=== PATIENT | female | born 1990 | race Caucasian/White ===

== ENCOUNTER 2024-03-24 08:13 | Outpatient (CLI) | payer BC ==
[2024-03-24 11:24] LABS: BHCG - Serum Negative (NEGATIVE); Pregs Control Background? CLEAR/WHITE (CLR/WHITE); Pregs Control Bar Appear? YES (CONTROL BAR)
== END 2024-03-24 08:14 | disposition home or self-care (01) ==
LOC: CSHLAB 08:13
PROVIDERS: ATTEND Surgery
DX: Z01.812 Encounter for preprocedural laboratory examination (principal); K43.2 Incisional hernia without obstruction or gangrene
CPT/HCPCS: 84703

== ENCOUNTER 2024-03-26 07:06 | Day surgery (SDC) | payer BC ==
[2024-03-24 08:38] VITALS: BMI 24.4
[2024-03-26] MEDS ORDERED: EPINEPHrine 1 MG/ML VIAL ONE (07:24)
[2024-03-26] MEDS ORDERED: Bupivacaine PF 0.5% 30 ML VIAL ONE (07:24)
[2024-03-26] MEDS ORDERED: Midazolam HCl 2 mg/2 ml Vial ONE (08:07)
[2024-03-26] MEDS ORDERED: PROPOFOL 20 ML ONE (08:30)
[2024-03-26] MEDS ORDERED: Ondansetron PF 4 MG/2 ML Vial ONE (08:30)
[2024-03-26] MEDS ORDERED: Rocuronium Bromide 10 MG/ML (10ML VIAL) ONE (08:30)
[2024-03-26] MEDS ORDERED: Ketorolac Tromethamine 30 MG (1 mL) VIAL ONE (08:30)
[2024-03-26] MEDS ORDERED: Esmolol 100 MG/10 ML VIAL ONE (08:30)
[2024-03-26] MEDS ORDERED: Dexamethasone 4 mg/ml Vial ONE (08:30)
[2024-03-26] MEDS ORDERED: Lidocaine 1% PF 5 ML VIAL ONE (08:33)
[2024-03-26] MEDS ORDERED: Clindamycin/D5W 600 mg/50 ml Premix Bag ONE (08:33)
[2024-03-26] MEDS ORDERED: fentaNYL 50 mcg/mL 1 mL Vial ONE (08:33)
[2024-03-26] MEDS ORDERED: Propofol 1,000 MG/100 ML VIAL IV ONE (08:37)
[2024-03-26] MEDS ORDERED: SUGAMMADEX SODIUM 200 MG/2 ML VIAL ONE (08:37)
[2024-03-26] MEDS ORDERED: HYDROmorphone 0.5 MG/0.5 ML SYRINGE ONE (08:37)
[2024-03-26] MEDS ORDERED: PHENYLEPHRINE-NS 100 MCG/ML 10 ML SYRINGE ONE (08:53)
[2024-03-26] MEDS ORDERED: Meperidine HCl/PF 25 MG (1 mL) VIAL ONE (10:04)
[2024-03-26] MEDS ORDERED: HYDROcodone/Acetaminophen 5/325 mg Tablet PO PRN (10:09)
[2024-03-26] MEDS ORDERED: HYDROcodone/Acetaminophen 5/325 mg Tablet ONE (10:47)
== END 2024-03-26 12:00 | disposition home or self-care (01) ==
LOC: CSHSDC 07:06
PROVIDERS: ATTEND Surgery
PROC: 0WUF0JZ Supplement Abdominal Wall with Synthetic Substitute, Open Approach (ICD-10-PCS; principal; 2024-03-26)
DX: K43.9 Ventral hernia without obstruction or gangrene (principal); K42.9 Umbilical hernia without obstruction or gangrene; K43.2 Incisional hernia without obstruction or gangrene; Z90.49 Acquired absence of other specified parts of digestive tract; Z90.89 Acquired absence of other organs; Z98.890 Other specified postprocedural states
CPT/HCPCS: C1781; J0171; J0665; J1100; J1170; J1885; J2175; J2250; J2405; J2704; J3010; J3490